=== PATIENT | female | born 1955 | race Caucasian/White ===

== ENCOUNTER 2018-03-12 14:16 | Emergency (ER) | payer BC ==
[~2018-03-12] VITALS: Ht 176.5 cm; Wt 104.0 kg
[~2018-03-12 14:16] MED LIST: ALPR-623 PO; AMIO200T5 PO; APIX5TAB3 PO; ASPI-1009 PO; BUPR150T27 PO; HYDR-3964 PO; LABE100T PO; LABE200T28 PO; METF500T7 PO; OMEP40CA37 PO; PREVCR VG
[2018-03-12] MEDS ORDERED: HYDR-565 PO (15:56)
[2018-03-12] MEDS ORDERED: ketorolac trometh inj. 60 MG/2 ML VIAL IM ONE (16:00)
[2018-03-12 16:26] VITALS: BP 172/88
== END 2018-03-12 16:28 | disposition home or self-care (01) ==
LOC: ER 14:17
DX: S83.91XS Sprain of unspecified site of right knee, sequela (principal); M25.461 Effusion, right knee; E78.00 Pure hypercholesterolemia, unspecified; I10 Essential (primary) hypertension; E11.9 Type 2 diabetes mellitus without complications; I48.91 Unspecified atrial fibrillation; Z90.710 Acquired absence of both cervix and uterus; Z98.890 Other specified postprocedural states; Z88.1 Allergy status to other antibiotic agents; Z88.0 Allergy status to penicillin; Z88.2 Allergy status to sulfonamides; Z88.5 Allergy status to narcotic agent; Z88.8 Allergy status to other drugs, medicaments and biological substances; Z79.899 Other long term (current) drug therapy; Z79.82 Long term (current) use of aspirin; Z56.0 Unemployment, unspecified; X58.XXXS Exposure to other specified factors, sequela
CPT/HCPCS: 73564; 96372; 99284; J1885

== ENCOUNTER 2019-02-06 13:17 | Inpatient (IN) | payer MEDICAID, OTHER, BC | END 2019-02-07 11:45 | disposition home or self-care (01) | LOC: ER 13:17 → PCU 3S 16:21 | PROC: 027134Z Dilation of Coronary Artery, Two Arteries with Drug-eluting Intraluminal Device, Percutaneous Approach (ICD-10-PCS; principal; ~2019-02-06) | PROC: 4A023N7 Measurement of Cardiac Sampling and Pressure, Left Heart, Percutaneous Approach (ICD-10-PCS; ~2019-02-06) | PROC: B211YZZ Fluoroscopy of Multiple Coronary Arteries using Other Contrast (ICD-10-PCS; ~2019-02-06) | DX: I21.4 Non-ST elevation (NSTEMI) myocardial infarction (principal); N18.3 Chronic kidney disease, stage 3 (moderate); I12.9 Hypertensive chronic kidney disease with stage 1 through stage 4 chronic kidney disease, or unspecified chronic kidney disease ==